=== PATIENT | female | born 1980 | race African-American/Black ===

== ENCOUNTER → 2017-08-10 | Emergency (ER) | payer OTHER ==
[~2017-08-10] VITALS: Ht 160 cm; Wt 68.0 kg
[~2017-08-10] MED LIST: CIPRO750 MG PO; HUMULIN 70/30 V10 ML; KETO10TA2 PO; LANTUS100 U/ML SQ; NABUMETONE750 MG PO; NORFLEX100MG PO
== END | disposition home or self-care (01) ==
LOC: ER 16:50
DX: S30.0XXA Contusion of lower back and pelvis, initial encounter (principal); W18.39XA Other fall on same level, initial encounter; Y93.89 Activity, other specified; Y92.098 Other place in other non-institutional residence as the place of occurrence of the external cause; Y99.8 Other external cause status; E11.9 Type 2 diabetes mellitus without complications

== ENCOUNTER → 2017-11-03 | Emergency (ER) | payer OTHER ==
[~2017-11-03] VITALS: Ht 162.6 cm; Wt 63.5 kg
== END | disposition home or self-care (01) ==
LOC: ER 20:35
DX: E13.65 Other specified diabetes mellitus with hyperglycemia (principal); M94.0 Chondrocostal junction syndrome [Tietze]

== ENCOUNTER 2018-01-04 21:34 | Emergency (ER) | payer OTHER ==
[~2018-01-04] VITALS: Ht 160 cm; Wt 68.0 kg
[2018-01-05] MEDS ORDERED: INTESTINEX680 M1 PO (08:41)
[2018-01-05] MEDS ORDERED: ZANTAC150 MG PO (08:41)
== END 2018-01-05 10:35 | disposition home or self-care (01) ==
LOC: ER 21:34
DX: K29.70 Gastritis, unspecified, without bleeding (principal); R51 Headache

== ENCOUNTER 2019-07-19 21:55 | Emergency (ER) | payer OTHER ==
[~2019-07-19] VITALS: Ht 165.1 cm; Wt 68.0 kg
[~2019-07-19 21:55] MED LIST changes: +INTESTINEX680 M1 PO; +ZANTAC150 MG PO
[2019-07-20] MEDS ORDERED: KETO10TA2 PO (01:59)
== END 2019-07-20 02:00 ==
LOC: ER 21:55
DX: R07.89 Other chest pain (principal)

== ENCOUNTER 2019-09-02 18:25 | Emergency (ER) | payer OTHER ==
[~2019-09-02] VITALS: Ht 160 cm; Wt 68.0 kg
[2019-09-02] MEDS ORDERED: DOLOGEN CAPLET1 EACH PO (23:23)
[2019-09-02] MEDS ORDERED: TUSNEL LIQUID178 ML PO (23:23)
[2019-09-02] MEDS ORDERED: OSEL75CA PO (23:23)
== END 2019-09-03 00:07 | disposition home or self-care (01) ==
LOC: ER 18:25
DX: J11.1 Influenza due to unidentified influenza virus with other respiratory manifestations (principal); B34.9 Viral infection, unspecified

== ENCOUNTER → 2021-10-05 | Emergency (ER) | payer OTHER ==
[~2021-10-05] VITALS: Ht 162.6 cm; Wt 68.0 kg
[~2021-10-05] MED LIST changes: +DOLOGEN CAPLET1 EACH PO; +HUMULIN 70100 UNIT/2 SUBCUTANEO; +OSEL75CA PO; +TUSNEL LIQUID178 ML PO
== END | disposition home or self-care (01) ==
LOC: ER 18:29
DX: E11.65 Type 2 diabetes mellitus with hyperglycemia (principal); Z79.4 Long term (current) use of insulin; R51.9 Headache, unspecified